=== PATIENT | female | born 1950 ===

== ENCOUNTER 2019-05-12 13:45 | Inpatient (IN) | payer OTHER ==
[~2019-05-12] VITALS: Ht 61 cm; Wt 5.0 kg
== END 2019-06-27 20:43 | disposition home or self-care (01) | DRG 330 ==
LOC: EDSTATUS 13:45 → ADM 13:45 → SURH 05-17 13:45 → O/R 06-21 05:25 → SURH 06-21 12:54
PROVIDERS: ADMIT Colon & Rectal Surgery
PROC: 0DQN4ZZ Repair Sigmoid Colon, Percutaneous Endoscopic Approach (ICD-10-PCS; 2019-06-21)
PROC: 0DJD8ZZ Inspection of Lower Intestinal Tract, Via Natural or Artificial Opening Endoscopic (ICD-10-PCS; 2019-06-21)
PROC: 3E0F7GC Introduction of Other Therapeutic Substance into Respiratory Tract, Via Natural or Artificial Opening (ICD-10-PCS; 2019-06-21)
PROC: 4A033R1 Measurement of Arterial Saturation, Peripheral, Percutaneous Approach (ICD-10-PCS; 2019-06-21)
PROC: 0DTN4ZZ Resection of Sigmoid Colon, Percutaneous Endoscopic Approach (ICD-10-PCS; principal; 2019-06-21 14:30)
DX: K57.32 Diverticulitis of large intestine without perforation or abscess without bleeding (principal); K92.1 Melena; K43.0 Incisional hernia with obstruction, without gangrene; J95.89 Other postprocedural complications and disorders of respiratory system, not elsewhere classified; J98.11 Atelectasis; K63.89 Other specified diseases of intestine; K66.0 Peritoneal adhesions (postprocedural) (postinfection); Z43.3 Encounter for attention to colostomy; I48.0 Paroxysmal atrial fibrillation; I12.9 Hypertensive chronic kidney disease with stage 1 through stage 4 chronic kidney disease, or unspecified chronic kidney disease; N18.3 Chronic kidney disease, stage 3 (moderate); Z79.01 Long term (current) use of anticoagulants